=== PATIENT | male | born 1990 | race Caucasian/White ===

== ENCOUNTER → 2017-03-29 | Outpatient (CLI) | payer OTHER ==
--- NOTE | 2017-03-29 09:15 | DIAGNOSTIC IMAGING REPORT ---
(BARIUM SWALLOW) ESOPHAGUS CLINICAL HISTORY: VOMITING,REGURGITATION,DYSPHAGIA COMPARISON STUDY: None. FLUOROSCOPY TIME: 1 minute. 20 images submitted. FINDINGS: The patient swallowed barium without difficulty. The contours of the hypopharynx are within normal limits. The esophagus is normal in course, caliber, and motility. No hiatus hernia. No gastroesophageal reflux. The barium tablet passed without difficulty. IMPRESSION: Normal barium swallow. Electronically signed by: Cm Gong M.D. 03/29/2017 9:13 AM Dictated Date/Time: 03/29/2017 9:13 AM
== END | disposition home or self-care (01) ==
LOC: C.RAD 08:39
PROVIDERS: ATTEND Internal Medicine Gastroenterology
DX: R11.10 Vomiting, unspecified (principal); R13.10 Dysphagia, unspecified

== ENCOUNTER → 2017-04-06 | Outpatient (CLI) | payer OTHER ==
--- NOTE | 2017-04-06 14:24 | DIAGNOSTIC IMAGING REPORT ---
NUCLEAR GASTRIC EMPTYING STUDY: CLINICAL HISTORY: R11.10 EARLY SATIETY. VOMITING. COMPARISON STUDY: None TECHNIQUE: Following the oral administration of 1.1 mCi of technetium 99m sulfur colloid in egg sandwich and 8 ounces of water, static abdominal images are performed anteriorly and posteriorly at 0 minutes, 1 hour, 2 hours, and 4 hour time intervals. Gastric emptying was calculated utilizing the geometric mean method. FINDINGS: There is approximately 78 % gastric activity remaining at the 1 hour time interval, 62 % at the 2 hour time interval (normal is less than 60%), and 33 % remaining at the 4 hour time interval (normal is less than 10%). These findings are consistent with delayed gastric emptying IMPRESSION: Findings are consistent with delayed gastric emptying. At 2 hours, 62% of the meal remained within the stomach (less than 60% normal). At 4 hours 33% of the meal remained within the stomach (less than 10% normal) Electronically signed by: Lit Napoles M.D. 04/06/2017 2:23 PM Dictated Date/Time: 04/06/2017 2:21 PM
== END | disposition home or self-care (01) ==
LOC: C.NUCL 08:18
PROVIDERS: ATTEND Internal Medicine Gastroenterology
DX: R11.10 Vomiting, unspecified (principal)